=== PATIENT | female | born 1990 | race Two or more races ===

== ENCOUNTER 2022-07-08 23:44 | Emergency (ER) | payer MEDICAID ==
[~2022-07-08] VITALS: Ht 157.5 cm; Wt 63.5 kg
--- NOTE | 2022-07-09 00:15 | NUR ---
Dr Marte at bedside MSE in progress
[2022-07-09] MEDS ORDERED: diphenhydrAMINE 50 MG CAPSULE ONE (00:23)
[2022-07-09] MEDS ORDERED: predniSONE 20 MG TABLET ONE (00:23)
[2022-07-09] MEDS ORDERED: ALBUTEROL SULFATE 2.5 MG/3 ML NEBU ONE (00:24)
[2022-07-09] MEDS ORDERED: ALBUTEROL SULFATE 2.5 MG/3 ML NEBU NEB ONE (00:30)
[2022-07-09] MEDS ORDERED: diphenhydrAMINE 50 MG CAPSULE PO ONE (00:30)
[2022-07-09] MEDS ORDERED: predniSONE 20 MG TABLET PO ONE (00:30)
[2022-07-09] MEDS ORDERED: ALBU8.5H8 IH (01:02)
[2022-07-09] MEDS ORDERED: PRED20TA PO (01:02)
[2022-07-09] MEDS ORDERED: LORA10TA7 PO (01:02)
--- NOTE | 2022-07-09 01:21 | NUR ---
Patient discharged to home in stable condition. Written and verbal after care instructions given. Patient verbalizes understanding of instructions. Stressed follow up or return to ER for worsening s/s. Patient is a/ox4, NAD noted. patient is able to walk with steady gait. patient is accompanied by her fiance
[2022-07-09 01:22] VITALS: BP 118/78
== END 2022-07-09 01:22 | disposition home or self-care (01) ==
LOC: ER 23:48
DX: J98.01 Acute bronchospasm (principal); Z20.822 Contact with and (suspected) exposure to COVID-19
CPT/HCPCS: 99283; 71045; 87426; 94640; Q0163; J7512